=== PATIENT | female | born 1960 | race Caucasian/White ===

== ENCOUNTER 2025-04-30 09:42 | Outpatient (CLI) | payer OTHER | END 2025-04-30 09:43 | disposition home or self-care (01) | LOC: MRI 09:42 | PROVIDERS: ATTEND Family Medicine | DX: M19.011 Primary osteoarthritis, right shoulder (principal); M67.813 Other specified disorders of tendon, right shoulder; S46.111A Strain of muscle, fascia and tendon of long head of biceps, right arm, initial encounter; R60.0 Localized edema ==